=== PATIENT | male | born 1940 | race American Indian/Alaskan Native ===

== ENCOUNTER 2020-05-20 21:02 | Emergency (ER) | payer MEDICARE ==
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
[2020-05-21] MEDS ORDERED: ACETAMINOPHEN 325 MG TAB PO ONE (02:42)
[2020-05-21] MEDS ORDERED: MORPHINE 4 MG/1 ML INJ IM ONE (03:11)
[2020-05-21] MEDS ORDERED: ONDANSETRON 4 MG/2 ML INJ IM ONE (03:11)
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
[2020-05-21 05:28] VITALS: BP 120/77
== END 2020-05-21 05:00 | disposition home or self-care (01) ==
LOC: ED 21:02
DX: S82.841A Displaced bimalleolar fracture of right lower leg, initial encounter for closed fracture (principal); S92.351A Displaced fracture of fifth metatarsal bone, right foot, initial encounter for closed fracture; I10 Essential (primary) hypertension; Z98.890 Other specified postprocedural states; X58.XXXA Exposure to other specified factors, initial encounter; Y93.89 Activity, other specified; Y92.89 Other specified places as the place of occurrence of the external cause; Y99.8 Other external cause status
CPT/HCPCS: 29515; 73610; 73620; 96372; 99284; J2270; J2405

== ENCOUNTER 2020-09-15 09:36 | Outpatient (CLI) | payer MEDICARE ==
--- NOTE | 2020-09-15 11:15 | XRay Report ---
RIGHT ANKLE 3 VIEWS RIGHT FOOT 3 VIEWS INDICATION: Right foot and ankle pain. COMPARISON: 05/20/2020. 08/04/2020 IMPRESSION: Minimally displaced distal fibular fracture and nondisplaced fractures through the media l malleolus and fifth metatarsal base are unchanged in position and alignment. 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 No new fracture is detected. T he bony structures are mildly demineralized. Mild degenerative changes are identified at the ankle codey int and throughout the foot. Moderate plantar spur. There is mild diffuse soft tissue swelling but th is has decreased since the previous exam. Signer Name: Edu Piña Jr, MD Signed: 09/15/2020 11:11 AM Workstation Name: [id number]
== END 2020-09-15 09:37 | disposition home or self-care (01) ==
LOC: XRAY 09:36
PROVIDERS: ATTEND Orthopaedic Surgery
DX: S92.354A Nondisplaced fracture of fifth metatarsal bone, right foot, initial encounter for closed fracture (principal); M79.89 Other specified soft tissue disorders; M77.8 Other enthesopathies, not elsewhere classified; M19.071 Primary osteoarthritis, right ankle and foot; X58.XXXA Exposure to other specified factors, initial encounter; Y93.89 Activity, other specified; Y92.89 Other specified places as the place of occurrence of the external cause; Y99.8 Other external cause status